=== PATIENT | female | born 1945 | race Caucasian/White ===

== ENCOUNTER 2016-10-11 11:43 | Outpatient (CLI) | payer MEDICARE ==
[2016-10-11 16:15] LABS: #Basophils 0.1 thou/uL (0.0-0.2); #Eosinphils 0.2 thou/uL (0.0-0.7); #Lymphocytes 1.3 thou/uL (1.20-3.40); #Monocytes 0.4 thou/uL (0.11-0.59); #Neutrophils 1.8 thou/uL (1.40-6.50); %Basophils 1.5 % (0.0-1.0); %Eosinophils 4.7 % (0.0-10.0); %Lymphocytes 34.6 % (21.0-51.0); %Monocytes 10.5 % (0.0-10.0); %Neutrophils 48.8 % (42.0-75.0); Hemoglobin 13.4 g/dL (12.0-16.0); Mean Corpuscular HGB CONC 32.9 g/dL (32.0-36.0); Mean Corpuscular Hemoglobin 29.5 pg (27.0-31.0); Mean Corpuscular Volume 89.7 fl (81.0-99.0); Mean Platelet Volume 6.1 fL (7.4-10.4); Platelet Count 226 thou/uL (130-400); RBC Distribution Width 12.8 % (11.5-14.5); Red Blood Cell (RBC) Count 4.54 mill/uL (4.20-5.40); White Blood Cell (WBC) Count 3.7 thou/uL (4.8-10.8)
[2016-10-11 16:30] LABS: ALT (SGPT) 24 U/L (8-55); AST (SGOT) 28 U/L (5-34); Albumin 4.2 g/dL (3.4-4.8); Alkaline Phosphatase 80 U/L (40-150); Anion Gap 13 mmol/L (10-20); BUN (Urea Nitrogen) 13 mg/dL (9.8-20.1); Bilirubin, Total 0.7 mg/dL (0.2-1.2); Calc. Creatinine Clearance 0 mL/min (70-130); Calcium 9.3 mg/dL (7.8-10.44); Carbon Dioxide 27 mmol/L (23-31); Cardiac Risk 3.1 (Less than 4.5); Chloride 107 mmol/L (98-107); Cholesterol 186 mg/dl (< 200 Desired); Estimated GFR-MDRD 81; Globulin 2.8 g/dL (2.4-3.5); Glucose 90 mg/dL (83-110); HDL Cholesterol 60 mg/dL (>60 Neg Risk); LDL Cholesterol, Calculated 112 mg/dL; Potassium 4.8 mmol/L (3.5-5.1); Sodium 142 mmol/L (136-145); Triglycerides 68 mg/dL (Less than 150)
== END 2016-10-11 11:44 | disposition home or self-care (01) ==
LOC: LABLEX 11:43
PROVIDERS: ATTEND Family Medicine
DX: E78.5 Hyperlipidemia, unspecified (principal); M81.0 Age-related osteoporosis without current pathological fracture
CPT/HCPCS: 80053; 80061; 82306; 85025

== ENCOUNTER 2016-11-20 08:27 | Outpatient (CLI) | payer MEDICARE ==
--- NOTE | 2016-11-20 21:37 | RAD ---
RIGHT HIP TWO VIEWS 11/20/16 No fracture or area of bony destruction was seen. Hip joint is normal in width and the articular keven faces are smooth. The pubic ring appears intact. There is a minor amount of irregularity of the less er trochanter that could be from an old injury, but the finding is not very impressive. Osteitis of the pubic symphysis is noted. IMPRESSION: No acute findings. POS: HOME
== END 2016-11-20 08:28 | disposition home or self-care (01) ==
LOC: BURRAD 08:27
PROVIDERS: ATTEND Family Medicine
DX: M25.551 Pain in right hip (principal)

== ENCOUNTER 2017-07-01 12:03 | Outpatient (CLI) | payer MEDICARE ==
--- NOTE | 2017-07-02 07:56 | RAD ---
LEFT KNEE THREE VIEWS: 07/01/2017 Comparison is made with an 11/23/2015 study done at [facility]. No fracture or joint effusion was seen. There are perhaps a few patellofemoral osteophytes beginning on the articular surfaces of the patella, and the patellofemoral joint seems slightly narrowed. The re is some minor medial joint space narrowing but no large osteophytes. IMPRESSION: Mild degenerative changes but no acute finding. POS: HOME
== END 2017-07-01 12:04 | disposition home or self-care (01) ==
LOC: BURRAD 12:03
PROVIDERS: ATTEND Orthopaedic Surgery
DX: M23.92 Unspecified internal derangement of left knee (principal); M17.12 Unilateral primary osteoarthritis, left knee

== ENCOUNTER 2018-05-09 11:54 | Outpatient (CLI) | payer MEDICARE ==
--- NOTE | 2018-05-09 14:03 | RAD ---
RIGHT ANKLE THREE VIEWS: INDICATIONS: Right heel pain. FINDINGS: There are prominent enthesophytes of the plantar and dorsal aspects of the calcaneus. There is no fr acture identified. The mortise is intact. The soft tissues are grossly unremarkable. IMPRESSION: 1. No acute osseous abnormality of the right ankle. 2. Prominent enthesophytes of the calcaneus. POS: [facility]
== END 2018-05-09 11:55 | disposition home or self-care (01) ==
LOC: BURRAD 11:54
PROVIDERS: ATTEND Physician Assistant
DX: M79.671 Pain in right foot (principal); M77.31 Calcaneal spur, right foot

== ENCOUNTER 2018-10-02 14:08 | Outpatient (CLI) | payer MEDICARE ==
--- NOTE | 2018-10-02 14:46 | RAD ---
Radiograph left heel 2 views: HISTORY: 73-year-old female with intermittent heel pain FINDINGS: Boehler's angle is maintained. Trabecular markings are preserved. Moderate sized enthesophytes at Ach illes tendon insertion site, and plantar fascia attachment site. IMPRESSION: 1. Heel spurs. 2. Otherwise negative.
--- NOTE | 2018-10-02 14:50 | RAD ---
Radiograph right heel 2 views: HISTORY: 73-year-old female with intermittent heel pain. FINDINGS: Boehler's angle is maintained. Trabecular markings are preserved. No fracture. Moderate sized entheso phyte at plantar fascia attachment site. Moderate size enthesophyte at Achilles tendon insertion site at posterior calcaneus. There is an ossific or calcific fragment measuring approximately 8 x 3 m m located slightly anterior and superior to that enthesophyte. There is moderate soft tissue thickening surrounding this and extending a few centimeters superior and inferior to that. IMPRESSION: 1.) Heel spurs. 2) soft tissue swelling/thickening which could be edema, posterior to the calcaneus. 3) a calcific or ossific fragment within the soft tissue swelling. This could be a displaced fracture of the enthesophyte, or could represent a nonspecific dystrophic calcification.
== END 2018-10-02 14:09 | disposition home or self-care (01) ==
LOC: BURRAD 14:08
PROVIDERS: ATTEND Podiatrist Foot & Ankle Surgery
DX: M76.61 Achilles tendinitis, right leg (principal); M76.62 Achilles tendinitis, left leg; M79.671 Pain in right foot; M79.672 Pain in left foot; M77.31 Calcaneal spur, right foot; M77.32 Calcaneal spur, left foot; M79.89 Other specified soft tissue disorders

== ENCOUNTER 2018-10-11 01:59 | Emergency (ER) | payer MEDICARE ==
[2018-10-11] MEDS ORDERED: Aspirin Chewable 81 MG TAB ONE (02:28)
[2018-10-11] MEDS ORDERED: Diltiazem 125 MG/25 ML ONE (02:30)
[2018-10-11 02:38] LABS: #Basophils 0.1 thou/uL (0.0-0.2); #Eosinphils 0.7 thou/uL (0.0-0.7); #Lymphocytes 1.7 thou/uL (1.20-3.40); #Monocytes 0.7 thou/uL (0.11-0.59); %Eosinophils 8.1 % (0.0-10.0); %Lymphocytes 21.1 % (21.0-51.0); %Monocytes 9.1 % (0.0-10.0); %Neutrophils 60.7 % (42.0-75.0); Hemoglobin 13.3 g/dL (12.0-16.0); Mean Platelet Volume 5.3 fL (7.4-10.4); Platelet Count 292 thou/uL (130-400); Red Blood Cell (RBC) Count 4.59 mill/uL (4.20-5.40); White Blood Cell (WBC) Count 8.2 thou/uL (4.8-10.8)
[2018-10-11 02:48] LABS: ALT (SGPT) 22 U/L (8-55); AST (SGOT) 22 U/L (5-34); Albumin 4.5 g/dL (3.4-4.8); Alkaline Phosphatase 115 U/L (40-150); Anion Gap 16 mmol/L (10-20); BUN (Urea Nitrogen) 13 mg/dL (9.8-20.1); Bilirubin, Total 0.3 mg/dL (0.2-1.2); Calc. Creatinine Clearance 0 mL/min (70-130); Calcium 10.2 mg/dL (7.8-10.44); Carbon Dioxide 22 mmol/L (23-31); Chloride 102 mmol/L (98-107); Estimated GFR-MDRD 77; Globulin 2.8 g/dL (2.4-3.5); Glucose 108 mg/dL (83-110); Potassium 3.9 mmol/L (3.5-5.1); Protein, Total 7.3 g/dL (6.0-8.3); Sodium 136 mmol/L (136-145)
--- NOTE | 2018-10-11 10:44 | RAD ---
PORTABLE CHEST: DATE: 10/11/2018. FINDINGS: An AP portable film at 0230 is compared with a 08/10/2015 study. The heart size is normal. There is no vascular congestion, edema, or pleural effusion. No large foc al infiltrate was seen. There was a little relative haziness in the right base medially, but this ma y be due to a combination of positioning and/or minimal atelectasis. IMPRESSION: No definite acute findings. POS: HOME
== END 2018-10-11 03:30 | disposition short-term general hospital (02) ==
LOC: BURERS 01:59
DX: I44.1 Atrioventricular block, second degree (principal); K21.9 Gastro-esophageal reflux disease without esophagitis; E78.5 Hyperlipidemia, unspecified; Z79.82 Long term (current) use of aspirin; Z79.899 Other long term (current) drug therapy
CPT/HCPCS: 71045; 80053; 84443; 84484; 85025; 85379; 93005; 94760; 96374; 96376

== ENCOUNTER 2018-10-22 10:43 | Outpatient (CLI) | payer MEDICARE ==
--- NOTE | 2018-10-22 18:17 | RAD ---
CHEST TWO VIEWS: 10/22/18 Comparison is made with the 10/11/18 study. The heart is normal in size and the lungs are clear. No infiltrate or effusion was seen. There is no vascular congestion or edema. The mediastinum appears normal. IMPRESSION: Stable exam showing no acute findings. POS: HOME
== END 2018-10-22 10:44 | disposition home or self-care (01) ==
LOC: BURRAD 10:43
PROVIDERS: ATTEND Physician Assistant
DX: Z01.818 Encounter for other preprocedural examination (principal)
CPT/HCPCS: 71046

== ENCOUNTER 2019-06-18 09:12 | Outpatient (CLI) | payer MEDICARE ==
--- NOTE | 2019-06-25 07:37 | ULT ---
ABDOMINAL ULTRASOUND: 06/17/28 Ultrasonography of the abdomen was performed. Please note that this study was done on 06/17 but not pr esented for reading until 06/23 due to technical issues. Liver is normal in size and appearance. No space occupying disease or dilated ducts were seen. The ga llbladder contains no signs of stones or wall thickening. There is probably a tiny polyp present in t he gallbladder that measures about 1 to 2 mm in size. The common bile duct was a normal 5 to 6 mm in diameter. The right kidney appeared normal and was 9.8 cm long and the left kidney also appeared normal, 10.3 c m long. The aorta and pancreas were unremarkable in terms of acute findings. IMPRESSION: No acute abdominal findings. Possible tiny polyp in the gallbladder. POS: HOME
== END 2019-06-18 09:13 | disposition home or self-care (01) ==
LOC: BURULT 09:12
PROVIDERS: ATTEND Physician Assistant
DX: R10.11 Right upper quadrant pain (principal)
CPT/HCPCS: 93975

== ENCOUNTER 2025-03-29 10:45 | Outpatient (CLI) | payer MEDICARE, OTHER | END 2025-03-29 10:46 | disposition home or self-care (01) | LOC: BURRAD 10:45 | PROVIDERS: ATTEND Physician Assistant | DX: M47.26 Other spondylosis with radiculopathy, lumbar region (principal); M41.9 Scoliosis, unspecified; M51.16 Intervertebral disc disorders with radiculopathy, lumbar region; M51.17 Intervertebral disc disorders with radiculopathy, lumbosacral region; M47.27 Other spondylosis with radiculopathy, lumbosacral region; M48.061 Spinal stenosis, lumbar region without neurogenic claudication; M48.07 Spinal stenosis, lumbosacral region | CPT/HCPCS: 72110 ==